=== PATIENT | female | born 1990 | race Caucasian/White ===

== ENCOUNTER 2025-09-29 18:36 | Emergency (ER) | payer OTHER, SELFPAY ==
--- NOTE | 2025-09-29 18:38 | ED_ITS ---
HPI - Skin/Abscess/Foreign Bdy General Chief complaint: Extremity Problem,Nontraumatic Stated complaint: swelling Source: patient and RN notes reviewed Mode of arrival: ambulatory Limitations: no limitations History of Present Illness HPI narrative: Patient is a 35-year-old female who presents to the [facility] with complaints of bilateral lower extremity edema. She states that she noted the edema 3-5 days ago. She has also noted erythema to bilateral lower legs, which continues to worsen in severity. She denies known fevers. Patient presents with multiple areas of skin excoriations, consistent with skin picking. Denies skin picking. Denies drug use. Patient states that she had a doctor tell her she was pre- diabetic. She is a pack a day smoker. Related Data Allergies Allergy/AdvReac Type Severity Reaction Status Date / Time No Known Allergies Allergy Verified 09/29/25 18:37 Review of Systems Review of Systems: CONSTITUTIONAL: Denies fever, chills, or sweats. EYES: Denies visual changes, redness, or discharge. ENT: Denies otalgia and sore throat CARDIOVASCULAR: Denies chest pain but reports bilateral lower leg edema. RESPIRATORY: Denies cough or dyspnea. GASTROINTESTINAL: Denies abdominal pain, nausea, vomiting, or diarrhea. GENITOURINARY: Denies dysuria or hematuria. SKIN: Reports lower leg erythema bilaterally. MUSCULOSKELETAL: Denies back pain, joint pain, or myalgia. NEUROLOGIC: Denies headache, numbness, or weakness. Pertinent positives per HPI. PMFSH Comments At the time of my signature, I reviewed and agree with the nursing past medical, surgical, social, and family history. There is no relevant family history pertinent to the patient complaint. Exam Narrative: GENERAL: This is a well-nourished, well-developed patient, in no apparent distress. HEAD: normocephalic, atraumatic. EYES: PERRL. Sclera clear/white. Vision is grossly intact. EARS: External ears normal, auditory canals clear and without drainage, TMs normal without perforation. Hearing grossly intact. NOSE: External nose normal with no obvious nasal discharge, nares without redne ss, no rhinorrhea. THROAT: Mucous membranes moist, posterior pharynx clear. NECK: Neck supple, non-tender without lymphadenopathy, masses or thyromegaly. CARDIOVASCULAR: Regular rate and rhythm without murmurs, gallops, or rubs. RESPIRATORY: Clear to auscultation. Breath sounds equal bilaterally. No wheezes, rales, or rhonchi. GASTROINTESTINAL: Abdomen soft, non-tender, nondistended. Bowel sounds are active. No hepato-splenomegaly, or palpable masses. No guarding. SKIN: Erythema noted to bilateral lower legs. Multiple areas of skin excoriation noted to bilateral legs and face upon arrival; consistent with skin picking. NEURO: awake, alert, and oriented to person, place and time. There were no obvious focal neurologic abnormalities. EXTREMITIES: Bilateral lower leg edema (2+) with erythema. Neurovascular status intact. Sensation intact. Course Course Level of Care: Express Care Visit Vital Signs Vital signs: Vital Signs Temperature 97.1 F L 09/29/25 18:46 Pulse Rate 74 09/29/25 18:46 Respiratory Rate 18 09/29/25 18:46 Blood Pressure 108/79 09/29/25 18:46 Pulse Oximetry 100 09/29/25 18:46 Oxygen Delivery Room Air 09/29/25 18:46 Temperature 97.1 F L 09/29/25 18:46 Pulse Rate 74 09/29/25 18:46 Respiratory Rate 18 09/29/25 18:46 Blood Pressure 108/79 09/29/25 18:46 Pulse Oximetry 100 09/29/25 18:46 Oxygen Delivery Room Air 09/29/25 18:46 Reviewed MDM MDM Narrative Medical decision making narrative: Patient was advised to go to the ED for further evaluation of her symptoms and history of present illness. Due to different diagnosis, it was advised that she present to the ED for appropriate testing and treatment. Patient declined transfer to ED at this time. Risks of worsening condition, , and disability reviewed with patient who verbalized understanding. AMA paperwork completed with patient, nurse, and provider. Treatment for cellulitis prescribed at this time with dual therapy of cephalexin and bactrim. Differential Diagnosis Differential Diagnosis: Cellulitis, heart failure, endocarditis, sepsis, DVT Critical Care Time Critical Care Time Critical Care Time: No Discharge Plan Discharge Clinical Impression: Bilateral lower extremity edema, Bilateral cellulitis of lower leg Patient Disposition: Left Against Medical Advice Condition: Stable Instructions: Cellulitis (ED), Edema (ED) Additional Instructions: I recommend that you go to the ED for further evaluation. Patient Language: Japanese Prescriptions: New cephalexin 500 mg capsule 500 mg PO Q12H 10 Days Qty: 20 0RF sulfamethoxazole-trimethoprim 800-160 mg tablet 1 tablet PO Q12H 10 Days Qty: 20 0RF Follow-up/Referrals: Carlos Wolf MD [Primary Care Provider, [facility]] Time of Disposition: 19:02
--- OUTSIDE RECORDS SUMMARY | 2025-09-29 18:42 | XMS_ITS | Clinical Summary ---
Author Organization [address] Address [address] [place] [id number] Care Team Providers Care Potato Chip Sorter Name Role Phone No, Physician Primary Care Provider [phone] Paulina Smith DPM Unavailable [phone] Allergies No known active allergies Medications escitalopram (LEXAPRO) 20 mg tablet Take 1 tablet (20 mg total) by mouth daily 3 Active famotidine (PEPCID) 20 mg tablet Take 1 tablet (20 mg total) by mouth 2 (two) times a day 3 Active traZODone (DESYREL) 50 mg tablet Take 1 tablet (50 mg total) by mouth as needed at bedtime 3 Active oxyCODONE-acetamino phen (PERCOCET) 5-325 mg per tabletIndications:P ain Take 1 tablet by mouth every 4 (four) hours as needed for pain 40 tablet 3 Active aspirin 325 mg tablet Take 1 tablet (325 mg total) by mouth daily 30 tablet 1 3 Active ondansetron ODT (ZOFRAN-ODT) 4 mg disintegrating tablet Take 1 tablet (4 mg total) by mouth every 8 (eight) hours as needed for nausea or vomiting 20 tablet 5 Active Active Problems Problem Noted Date Diagnosed Date Bunion of great toe of left foot 12/27/2022 Overview (12/27/2022): Added automatically from request for surgery [id number] Acquired hallux valgus of left foot 12/27/2022 Overview (12/27/2022): Added automatically from request for surgery [id number] Immunizations Immunization Administration Dates Next Due Influenza, Quadrivalent, Spl it, Preservative Free, Intramuscular 07/18/2019 Medical History Medical History Date Comments GERD (gastroesophageal reflux disease) Anxiety and depression Family History Medical History Relation Name Comments Diabetes Mother's Sister Relation Name Status Comments Mother's Sister Social History Tobacco Use Types Packs/Day Years Used Date Smoking Tobacco: Every Day Cigarettes Passive Smoke Exposure: Current Smokeless Tobacco: Never Tobacco Cessation:Ready to Q uit: Yes; Counseling Given: Yes Alcohol Use Standard Drinks/Week Comments Not Currently 0 (1 standard drink = 0.6 oz pur e alcohol) AUDIT-C Answer Date Recorded Q1: How often do you have a drink containing alc ohol? Monthly or less 01/03/2023 Q2: How many drinks containi ng alcohol do you have on a typical day when you are drinking? 1 or 2 01/03/2023 Q3: How often do you have si x or more drinks on one occasion? Never 01/03/2023 Personal Safety Answer Date Recorded Have you ever been in or are you currently in a harmful physical or emotional relationship or is someone making you feel afraid or unsafe? 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 Gender Identity Not on file Sexual Orientation Not on file Obstetrics History Para Term AB IAB SAB Ectopic Multiple Livin g Live Births 3 3 3 0 3 3 Date Outcome GA Total Labor Labor/2nd/3rd Weight Sex Type Anes PTL Maricruz A1 A5 Name Clin 2010 Term F Vag-S pont Livin g 2015 Term F Vag-S pont Livin g 2018 Term 39w 2d 0h 52m 0h 35m/0h 04m/0h 13m 3.024 kg (6 lb 10.7 oz) M Vag-S pont Epidur al N Livin g 9 9 Jarrett GAFFNEY OYSara Nguyen MD Complications:Precipitous La bor (<3 hours) Delivery Location:[facility] ([facility]) Last Filed Vital Signs Vital Sign Reading Time Taken Comments Blood Pressure 119/77 12/22/2024 10:54 AM CDT Pulse 98 12/22/2024 10:54 AM CDT Temperature 36.5 C (97.7 F) 12/22/2024 10:54 AM CDT Respiratory Rate 16 12/22/2024 10:54 AM CDT Oxygen Saturation 99% 12/22/2024 10:54 AM CDT Inhaled Oxygen Concentration - - Weight 73 kg (161 lb) 12/22/2024 10:54 AM CDT Height 157.5 cm (5' 2) 12/22/2024 10:54 AM CDT Body Mass Index 29.45 12/22/2024 10:54 AM CDT Plan of Treatment Health Maintenance Due Date Last Done Comments Cervical Cancer Screening 1992 Depression Screening 1992 Hepatitis C Screening 1992 Regular Well Visit/Exam 18-64 01/03/2010 Pneumococcal vaccine <65 (1 of 2 - PCV) 01/03/2011 Varicella Vaccines (2 of 2 - 13+ 2-dose series) 07/03/2016 06/05/2016 HPV Vaccines (1 - 3-dose SCD M series) 01/03/2019 Influenza Vaccine (#1) 2025 , 07/18/2019, 10/27/2013 DTaP/Tdap/Td Vaccine (8 - Td or Tdap) 06/13/2029 06/13/2019, 06/04/2016, 06/11/2007, Additional history exists Hepatitis B Screening Completed 05/29/2003 , 07/23/1997, 06/09/1997, Additional history exists Medical Devices Implanted Type Area Photovoltaic Power Systems Engineer Device Identifier Shelf Expiration Date Model / Serial / Lot Airpowered Inc Screw Bone Lapiplasty Select Ti Sk34 - [id number] Implanted:Qty: 1 on 01/12/2023 by Paulina Smith DPM at [facility] Left: First Toe [employer]. MEDICAL Thru[employer] Inc. INC 08/24/2027 SK34 / / [id number] Airpowered Inc Pack Screw Bone Cannulated Full Thread Locking Lapiplasty 2.7mm Ti Sd16 - [id number] Implanted:Qty: 1 on 01/12/2023 by Paulina Smith DPM at [facility] Left: First Toe [employer] INC 05/01/2025 SD16 / / [id number] Treace Medical Concepts Inc Screw Bone Locking Lapiplasty 2.7mm Ti Sd28 - [id number] Implanted:Qty: 1 on 01/12/2023 by Paulina Smith DPM at [facility] Left: First Toe [employer] 08/16/2027 SD28 / / [id number] Memometal Inc [place] Easyclip Si 2mm [id number] Monocortical Superelastic Reamer Ezm 07-24-10 - [id number] Implanted:Qty: 1 on 01/12/2023 by Paulina Smith DPM at [facility] Left: First Toe Memometal Inc [place] 09/13/2027 EZM 07-24-10 / / [id number] Insurance [facility] MEDICAID [facility] Advance Directives For more information, please contact: [phone] * Full Code (Latest Code Status on File) Date Activated Date Inactivated Comments 01/12/2023 2:52 PM 01/12/2023 8:47 PM * Full Code Date Activated Date Inactivated Comments 07/17/2019 2:40 PM 07/19/2019 12:23 AM * Full Code Date Activated Date Inactivated Comments 07/17/2019 6:54 AM 07/17/2019 2:40 PM Full CPR in case of cardiopulmonary arrest Care Teams Potato Chip Sorter Relationship Specialty Start Date End Date No, Physician PCP - General 07/22/17 Paulina Smith DPM [address] [place] [id number] Consulting Physician Foot and Ankle Surg 01/12/23
[2025-09-29 18:46] VITALS: BP 108/79; PULSE 74; RESP 18; TEMP 36.2; O2SAT 100
== END 2025-09-29 19:05 | disposition left against medical advice (07) ==
PROVIDERS: Emergency Provider Nurse Practitioner; PCP Emergency Medicine
DX: L03.116 Cellulitis of left lower limb (principal); L03.115 Cellulitis of right lower limb; F17.200 Nicotine dependence, unspecified, uncomplicated; Z86.16 Personal history of COVID-19
CPT/HCPCS: 99213; G0463

== ENCOUNTER 2025-10-05 09:15 | Emergency (ER) | payer OTHER, SELFPAY ==
[2025-10-05] VITALS (20 sets, daily range): BP systolic 110–134; BP diastolic 76–95; PULSE 73–105; RESP 12–22; TEMP 36.7; O2SAT 97–100
--- NOTE | ~2025-10-05 | XR_ITS ---
Examination: XR chest 2V Clinical History: cp Comparison: None Technique: PA and Lateral Findings: Cardiomediastinal silhouette normal size and configuration. Lungs clear. No acute bony abnormality. IMPRESSION: 1. No acute cardiopulmonary findings. Reviewed, dictated and finalized at location R. ANY CONTROLLER
--- NOTE | ~2025-10-05 | US_ITS ---
EXAMINATION: US venous doppler [facility] DATE: 10/05/2025 11:12 INDICATION: Bilateral lower limb swelling and erythema TECHNIQUE: Grayscale ultrasound images without and with compression and Doppler ultrasound images of the bilateral lower extremity veins were obtained. COMPARISON: None. FINDINGS: The visualized portions of right common femoral vein, profunda (deep) femoral vein, femoral vein, popliteal vein, posterior tibial veins, peroneal veins, gastrocnemius vein and greater saphenous vein outflow are patent. The visualized portions of left common femoral vein, profunda femoral vein, femoral vein, popliteal vein, posterior tibial veins, peroneal veins, gastrocnemius vein and greater saphenous vein outflow are patent. IMPRESSION: 1. No deep venous thrombosis in either lower limb. Reviewed, dictated and finalized at location A. E MIXER
--- NOTE | 2025-10-05 09:17 | ECG_ITS ---
Test Date: 2025-10-05 09:23:29 Measurements Intervals [place] Rate: 92 P: 43 LA: 138 QRS: 30 QRSD: 87 T: 51 QT: 330 QTc: 410 Interpretive Statements SINUS RHYTHM TYPE 3 BRUGADA PATTERN (NON-DIAGNOSTIC) BASELINE WANDER- V5-V6 ABNORMAL ECG No previous ECG available for comparison Electronically Signed On 10-05-2025 09:38:50 DOUGHNUT ICER by Per Chirinos D.O.
--- OUTSIDE RECORDS SUMMARY | 2025-10-05 10:12 | XMS_ITS | Clinical Summary ---
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 Gender Identity Not on file Sexual Orientation [...] al N Livin g 9 9 Jarrett GAFFENY OYSara Nguyen MD Complications:Precipitous La bor (<3 [...] history exists Medical Devices Implanted Type Area [employer] Device Identifier Shelf Expiration Date Model / Serial / Lot TaskR[employer] Inc Screw Bone Lapiplasty Select Ti Sk34 - [id number] Implanted:Qty: 1 on 01/12/2023 by Paulina Smith DPM at [facility] Left: First Toe [employer] MEDICAL [employer] INC 08/24/2027 SK34 / / [id number] [employer] Inc Pack Screw Bone Cannulated Full Thread Locking Lapiplasty 2.7mm Ti Sd16 - [id number] Implanted:Qty: 1 on 01/12/2023 by Paulina Smith DPM at [facility] Left: First Toe [employer] 05/01/2025 SD16 / / [id number] Treace Medical [employer]s Inc Screw Bone Locking Lapiplasty 2.7mm Ti Sd28 - [id number] Implanted:Qty: 1 on 01/12/2023 by Paulina Smith DPM at [facility] Left: First Toe [employer] INC 08/16/2027 SD28 / / [id number] Memometal Inc [place] Easyclip Si 2mm [id number] Monocortical Superelastic Reamer Ezm 07-24-10 - [id number] Implanted:Qty: 1 on 01/12/2023 by Paulina Smith DPM at [facility] Left: First Toe Memometal Inc [place] 09/13/2027 EZM 07-24-10 / / [id number] Insurance [facility] [place] [address] [facility] Advance Directives For more information, please contact: [phone] * Full Code (Latest Code Status on File) Date Activated Date Inactivated Comments 01/12/2023 2:52 PM 01/12/2023 8:47 PM * Full Code Date Activated Date Inactivated Comments 07/17/2019 2:40 PM 07/19/2019 12:23 AM * Full Code Date Activated Date Inactivated Comments 07/17/2019 6:54 AM 07/17/2019 2:40 PM Full CPR in case of cardiopulmonary arrest Care Teams Slip Caster Relationship Specialty Start Date End Date No, Physician PCP - General 07/22/17 Paulina Smith DPM [address] [place] [id number] Consulting Physician Foot and Ankle Surg 01/12/23
[2025-10-05 10:15] LABS: Hematocrit 36.0 % (37.0-47.0); Hemoglobin 12.3 g/dL (12.0-15.0); Immature Granulocyte Percent A 0.4 % (0-0.5); Lymphocytes Absolute Auto 1.90 K/mm3 (0.9-3.2); Mean Corpuscular HGB Conc 34.2 g/dl (32-36); Mean Corpuscular Hemoglobin 31.8 pg (26-34); Mean Corpuscular Volume 93.0 fl (80-100); Nucleated Red Blood Cells Absolute Auto 0.000 K/mm3 (0.0-0.012); Nucleated Red Blood Cells Perc 0.0 % (0.0-0.2); Platelet Count Result 280 k/mm3 (150-375); Red Blood Count 3.87 M/mm3 (4.2-5.4); White Blood Count 5.5 K/mm3 (4.5-10.0)
[2025-10-05 10:28] LABS: INR 1.0; Prothrombin Time 12.8 Seconds (11.1-14.7)
[2025-10-05 10:29] LABS: Alanine Aminotransferase 21 U/L (6-35); Albumin Level 3.9 g/dL (3.5-5.1); Alkaline Phosphatase 61 U/L (38-126); Anion Gap 7 mmol/L (4-12); Aspartate Amino Transferase 21 U/L (14-36); Bilirubin,Total 0.3 mg/dL (0.2-1.3); Blood Urea Nitrogen 12 mg/dL (7-17); Calcium 8.7 mg/dL (8.4-10.2); Carbon Dioxide 23 mmol/L (22-30); Chloride 106 mmol/L (98-107); Estimated CRCL calculation 86 ml/min; Estimated Glomerular Filt Rate > 60; Glucose 114 mg/dL (65-110); Lipase 118 U/L (23-300); Partial Thromboplastin Time 25.6 Seconds (22.3-36.8); Potassium 3.9 mmol/L (3.4-5.0); Sodium 136 mmol/L (137-145); Total Protein 6.9 g/dL (6.3-8.2)
[2025-10-05 10:40] LABS: Troponin I < 0.012 ng/mL (0.000-0.034)
--- OUTSIDE RECORDS SUMMARY | 2025-10-05 11:29 | XMS_ITS | Clinical Summary ---
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 Gender Identity Not on file Sexual Orientation [...] history exists Medical Devices Implanted Type Area Commercial Door Installer Device Identifier Shelf Expiration Date Model / Serial / Lot Skiipi Inc Screw Bone Lapiplasty Select Ti Sk34 - [id number] Implanted:Qty: 1 on 01/12/2023 by Paulina Smith DPM at [facility] Left: First Toe [employer]REB[employer] MED[employer] INC 08/24/2027 SK34 / / [id number] Skiipi Inc Pack Screw Bone Cannulated Full Thread Locking Lapiplasty 2.7mm Ti Sd16 - [id number] Implanted:Qty: 1 on 01/12/2023 by Paulina Smith DPM at [facility] Left: First Toe [employer] 05/01/2025 SD16 / / [id number] Treace Medical [employer]s Inc Screw Bone Locking Lapiplasty 2.7mm Ti Sd28 - [id number] Implanted:Qty: 1 on 01/12/2023 by Paulina Smith DPM at [facility] Left: First Toe [employer] 08/16/2027 SD28 / / [id number] Memometal Inc [place] Easyclip Si 2mm [id number] Monocortical Superelastic Reamer Ezm 07-24-10 - [id number] Implanted:Qty: 1 on 01/12/2023 by Paulina Smith DPM at [facility] Left: First Toe Memometal Inc [place] 09/13/2027 EZM 07-24-10 / / [id number] Insurance [facility] MEDICAID [facility] Advance Directives For more information, please contact: [phone] * Full Code (Latest Code Status on File) Date Activated Date Inactivated Comments 01/12/2023 2:52 PM 01/12/2023 8:47 PM * Full Code Date Activated Date Inactivated Comments 07/17/2019 2:40 PM 07/19/2019 12:23 AM * Full Code Date Activated Date Inactivated Comments 07/17/2019 6:54 AM 07/17/2019 2:40 PM Full CPR in case of cardiopulmonary arrest Care Teams Proof Coins Inspector Relationship Specialty Start Date End Date No, Physician PCP - General 07/22/17 Paulina Smith DPM [address] [place] [id number] Consulting Physician Foot and Ankle Surg 01/12/23
--- NOTE | 2025-10-05 11:58 | ED.CHESTPAIN ---
HPI - Chest Pain General Chief Complaint: Chest Pain Stated Complaint: leg swelling, cp Time Seen by Provider: 10/05/25 09:59 Source: patient and old records reviewed Mode of arrival: ambulatory Limitations: no limitations History of Present Illness HPI narrative: Patient is a 35-year-old female who presents to the ED with report of chest pain and swelling in her legs. Patient reports she has had swelling and redness in her bilateral lower legs for the past few days. Was seen at an urgent care on 09/29 and diagnosed with cellulitis, Rx'd keflex and bactrim. Has been taking these as prescribed. Per report, patient signed AMA paperwork in terms of recommendation to come to the ED at that time. States the swelling and redness has improved slightly. Reports diffuse discomfort throughout lower extremities. Also reports having left-sided chest pain since this morning, worse with taking a deep breath. Has been feeling mildly short of breath. Denies history of blood clots. She does admit she became anxious about symptoms and may have worked herself up. Reports mild recent cough. Denies fevers. Related Data Allergies Allergy/AdvReac Type Severity Reaction Status Date / Time No Known Allergies Allergy Verified 10/05/25 10:16 Review of Systems Review of Systems: All systems reviewed & are unremarkable except as noted in HPI. All systems reviewed & are unremarkable except as noted in HPI and below Exam Narrative: GENERAL: Mildly uncomfortable appearing, well-nourished, non-toxic, in no acute distress. HEAD: Normocephalic, atraumatic. RESPIRATORY: Airway patent, respirations nonlabored. Clear to auscultation bilaterally, no rales, rhonchi, wheezing. No appreciable focal lung sounds CARDIOVASCULAR: Regular rate and rhythm without murmurs, rubs, or gallops. Peripheral pulses are intact and easily palpable MUSCULOSKELETAL: Moves all extremities. No gross deformities. Mild diffuse swelling throughout bilateral lower extremities. Scattered areas of redness, skin excoriation, slight bruising, tenderness throughout bilateral lower legs and dorsal feet. No obvious abscess or large wounds. Sensation intact. No chest wall tenderness to palpation. SKIN: Warm, dry, normal color. NEURO: A&O X3. Speech clear. Cranial nerves II-XII grossly intact. Steady gait. No ataxic movements. PSYCHIATRIC: Appropriate mood and affect. Normal interaction. Course Vital Signs Vital signs: Vital Signs Temperature 98.1 F 12/22/25 09:31 Pulse Rate 92 10/05/25 09:31 Respiratory Rate 22 H 10/05/25 09:31 Blood Pressure 125/83 10/05/25 09:31 Pulse Oximetry 100 10/05/25 09:31 Oxygen Delivery Room Air 10/05/25 09:31 Temperature 98.1 F 10/05/25 09:31 Pulse Rate 92 10/05/25 14:56 Respiratory Rate 19 10/05/25 14:56 Blood Pressure 110/83 10/05/25 14:56 Pulse Oximetry 99 10/05/25 14:30 Oxygen Delivery Room Air 10/05/25 10:10 MDM MDM Narrative Medical decision making narrative: Patient presented to ED with swelling/redness of legs, started on antibiotics by urgent care couple of days ago with some improvement. Also reports left-sided chest pain since this morning, pleuritic in nature, mild SOB. Vital signs are stable upon arrival. Patient is in no acute distress. Oxygen is stable on room air. EKG with sinus rhythm, normal rate, possible type 3 Brugada pattern Baseline troponin undetectable HEART score 2 based on EKG, smoking hx D-dimer within normal range. Venous Doppler ultrasound was also negative for DVT in either leg. Low suspicion for VTE this time. Chest x-ray is clear Viral swabs are negative. 3 hour EKG with normal sinus rhythm, no evidence of Brugada pattern 3 hour troponin undetectable. Very low suspicion for ACS at this time. I did discuss possible Brugada pattern with Zee Aldridge, cardiology, advised likely not true brugada pattern, no f/u necessary. Remainder basic laboratory studies are otherwise unremarkable. No leukocytosis or anemia. Stable electrolytes. Suspicious for cellulitis/dependent edema. Feel patient is on the appropriate antibiotic regimen at this time. She has reported improvement since beginning the antibiotics. Advised to continue this. Discussed elevation of legs, compression stockings. Discussed close follow-up with PCP for further evaluation. Discussed very strict return precautions. Patient in agreement with plan, feels comfortable going home. Discharged in stable condition. Differential Diagnosis Differential Diagnosis: Cellulitis, DVT, dependent edema, lymphedema, erythema nodosum, ACS, atypical chest pain, PE, pneumonia Medical Records I have reviewed the following patient records and this information was taken into consideration when formulating the assessment and plan.: previous labs, previous ER visits, previous hospitalizations and previous clinic visits Lab Data MDM Lab Attestation statement: I personally reviewed the patient's lab results. 10/05/25 10:09 10/05/25 10:09 Labs: Lab Results 10/05/25 10/05/25 10/05/25 Range/Units 10:09 11:34 13:26 WBC 5.5 (4.5-10.0) K/mm3 RBC 3.87 L (4.2-5.4) M/mm3 Hgb 12.3 (12.0-15.0) g/dL Hct 36.0 L (37.0-47.0) % MCV 93.0 (80-100) fl MCH 31.8 (26-34) pg MCHC 34.2 (32-36) g/dl RDW 12.3 (11.5-14.5) % Plt Count 280 (150-375) k/mm3 MPV 9.5 (7.4-10.4) fl Immature Gran % (Auto) 0.4 (0-0.5) % Neut % (Auto) 49.5 (45.5-73.1) % Lymph % (Auto) 34.7 (18.3-44.2) % Saline % (Auto) 11.2 H (2.6-8.5) % Eos % (Auto) 2.7 (0-4.4) % Baso % (Auto) 1.5 H (0.2-1.2) % Lymph # (Auto) 1.90 (0.9-3.2) K/mm3 Saline # (Auto) 0.6 (0.1-0.6) K/mm3 Eos # (Auto) 0.2 (0-0.3) K/mm3 Baso # (Auto) 0.1 (0.0-0.1) K/mm3 Abs Immat Gran (auto) 0.02 (0.00-0.031) K/mm3 Absolute Neuts (auto) 2.7 (1.3-6.7) K/mm3 Absolute Nucleated RBC 0.000 (0.0-0.012) K/mm3 Nucleated RBC % 0.0 (0.0-0.2) % PT 12.8 (11.1-14.7) Seconds INR 1.0 APTT 25.6 (22.3-36.8) Seconds D-Dimer < 0.27 (<0.48) ug/mL Sodium 136 L (137-145) mmol/L Potassium 3.9 (3.4-5.0) mmol/L Chloride 106 (98-107) mmol/L Carbon Dioxide 23 (22-30) mmol/L Anion Gap 7 (4-12) mmol/L BUN 12 (7-17) mg/dL Creatinine 0.75 (0.7-1.0) mg/dL Estim Creat Clear Calc 86 ml/min Estimated GFR > 60 (59 - ) Glucose 114 H (65-110) mg/dL Calcium 8.7 (8.4-10.2) mg/dL Total Bilirubin 0.3 (0.2-1.3) mg/dL AST 21 (14-36) U/L ALT 21 (6-35) U/L Alkaline Phosphatase 61 (38-126) U/L Troponin I < 0.012 < 0.012 (0.000-0.034) ng/mL Total Protein 6.9 (6.3-8.2) g/dL Albumin 3.9 (3.5-5.1) g/dL Lipase 118 (23-300) U/L Influenza A (RT-PCR) Negative (Negative) Influenza B (RT-PCR) Negative (Negative) RSV (RT-PCR) Negative (Negative) SARS-CoV-2 RNA (RT-PCR) Negative (Negative) Imaging Data Attestation: I personally reviewed and interpreted this imaging study as follows: Radiologist's impression: ITS Impressions Chest X-Ray 10/05/25 10:07 IMPRESSION: 1. No acute cardiopulmonary findings. Venous Doppler Study 10/05/25 11:14 IMPRESSION: 1. No deep venous thrombosis in either lower limb. Discharge Plan Discharge Clinical Impression: Atypical chest pain, Bilateral cellulitis of lower leg, Localized swelling of both lower legs Patient Disposition: Home Condition: Stable Instructions: Antibiotic Form, Chest Pain (ED), Cellulitis (ED), Leg Edema (ED) Additional Instructions: Your workup here was reassuring against a cardiac cause of your chest pain. Your imaging did not show any evidence of blood clots in your legs. Continue antibiotics as prescribed for leg cellulitis. Recommend keeping legs elevated as much as possible. You may try compression stockings as needed. You may use Tylenol/ibuprofen as needed for pain. Follow-up closely with your primary care doctor for further evaluation. Call office make appointment. Return to the ED for worsening or severe chest pain, difficulty breathing, unable to keep down food or drink, worsening or severe pain redness/swelling legs, persistent fevers, or any other symptoms of concern. Patient Language: Egyptian Prescriptions: No Action cephalexin 500 mg capsule 500 mg PO Q12H 10 Days Qty: 20 0RF sulfamethoxazole-trimethoprim 800-160 mg tablet 1 tablet PO Q12H 10 Days Qty: 20 0RF Follow-up/Referrals: Carlos Wolf MD [Primary Care Provider, [facility]] Time of Disposition: 14:50 Quality HEART score for chest pain patients History: slightly suspicious ECG: non specific repolarization disturbance/LBTB/PM Age: < or = to 45 years Risk factors: 1 or 2 risk factors Troponin: < or = to 1x normal limit Heart score: 2
[2025-10-05 12:13] LABS: Influenza A QL RT-PCR Negative (Negative); Influenza B QL RT-PCR Negative (Negative); RSV RNA, RT-PCR Negative (Negative); SARS-CoV-2 RNA PCR Negative (Negative)
--- NOTE | 2025-10-05 13:03 | ECG_ITS ---
Test Date: 2025-10-05 13:11:13 Measurements Intervals [place] Rate: 77 P: 57 AK: 154 QRS: 28 QRSD: 92 T: 45 QT: 356 QTc: 405 Interpretive Statements SINUS RHYTHM LOW QRS VOLTAGE IN PRECORDIAL LEADS BASELINE WANDER- I, II BORDERLINE ECG Compared to ECG 10/05/2025 09:23:29 Low QRS voltage now present Electronically Signed On 10-05-2025 13:34:23 OPTIMIZATION MANAGER by Per Chirinos D.O.
[2025-10-05 14:01] LABS: Troponin I < 0.012 ng/mL (0.000-0.034)
== END 2025-10-05 15:03 | disposition home or self-care (01) ==
PROVIDERS: Emergency Medicine; Emergency Provider Physician Assistant; PCP Emergency Medicine
DX: R07.89 Other chest pain (principal); L03.116 Cellulitis of left lower limb; L03.115 Cellulitis of right lower limb; R06.02 Shortness of breath; Z20.822 Contact with and (suspected) exposure to COVID-19
CPT/HCPCS: 36415; 71046; 80053; 83690; 84484; 85025; 85380; 85610; 85730; 87637; 93005; 93970; 99284